=== PATIENT | female | born 1980 | race Caucasian/White ===

== ENCOUNTER 2020-10-13 15:28 | Outpatient (CLI) | payer BC, MEDICAID, SELFPAY ==
--- NOTE | 2020-10-13 15:35 | USR_ITS ---
PROCEDURE INFORMATION: Exam: US First Trimester, Transabdominal Exam date and time: 10/13/2020 3:39 PM Age: 40 years old Clinical indication: Lmp or gestational age (in weeks): [id number]; Antepartum complications; Other: Cramping; ; Additional info: Multigravida of advanced maternal age TECHNIQUE: Imaging protocol: Real-time transabdominal obstetrical ultrasound of the maternal pelvis and a first trimester , less than 14 weeks 0 days, with image documentation. COMPARISON: No relevant prior studies available. FINDINGS: Gestation: There is a Intrauterine gestational sac with pole and Yolk sac is 2.5 mm Embryonic/ heart rate: 147 BPM Placenta: Unremarkable. No subchorionic bleed. Amniotic fluid: Amniotic fluid is normal for gestational age. BIOMETRY: Gestational age (AUA): CRL 8.9 mm 6 weeks 6 days [facility] 06/02/2021 Gestational sac 2.46 cm 7 weeks 6 days [facility] 05/26/2021. Ultrasound gestational age 6 weeks 6 days [facility] 06/02/2021 Clinical gestational age 6 weeks 6 days U[facility] 06/02/2021 MATERNAL: Uterus: A uterine fibroid is seen in the anterior wall 1.1 cm x 1 cm x 1.2 cm Cervix: Cervical myometrial calcified fibroid 1.4 cm x 1.3 cm x 1.1 cm Right adnexa: There is a corpus luteum cyst with internal debris 1.3 cm x 1.6 cm x 1.5 Right ovary measures 3.9 cm x 2.3 cm x 2.4 cm Left adnexa: Unremarkable. 2.8 cm x 1.7 cm x 1.7 cm Intraperitoneal space: No intraperitoneal free fluid. US/US OB <=14 wk fetus w transvag IMPRESSION: 1. Intrauterine gestational sac with a pole and yolk sac. 2. Gestational age 6 weeks 6 days U[facility] 06/02/2021 3. Corpus luteum cyst right ovary . 4. Uterine fibroid anterior wall of the uterine body 5. Calcified cervical fibroid . 6. Negative left ovary.
== END 2020-10-13 15:29 | disposition home or self-care (01) ==
PROVIDERS: PCP Nurse Practitioner Family; Visit Provider Registered Nurse
DX: O09.521 Supervision of elderly multigravida, first trimester (principal); Z3A.01 Less than 8 weeks gestation of pregnancy; N83.11 Corpus luteum cyst of right ovary; D25.9 Leiomyoma of uterus, unspecified; D26.0 Other benign neoplasm of cervix uteri
CPT/HCPCS: 76801; 76817

== ENCOUNTER → 2020-11-04 08:41 | Outpatient (BNVA) | payer BC, SELFPAY | PROVIDERS: PCP Nurse Practitioner Family; Visit Provider Obstetrics & Gynecology | DX: Z34.80 Encounter for supervision of other normal pregnancy, unspecified trimester (principal) | CPT/HCPCS: 80307; 84315; 87086 ==

== ENCOUNTER → 2020-11-11 10:42 | Outpatient (BNVA) | payer BC, MEDICAID, SELFPAY | PROVIDERS: PCP Nurse Practitioner Family; Visit Provider Obstetrics & Gynecology | DX: Z34.80 Encounter for supervision of other normal pregnancy, unspecified trimester (principal) | CPT/HCPCS: 82950; 85027; 86592; 86762; 86803; 86850; 86900; 87340; 87806 ==

== ENCOUNTER → 2020-11-18 08:00 | Outpatient (BNVA) | payer BC, SELFPAY | PROVIDERS: PCP Nurse Practitioner Family; Visit Provider Obstetrics & Gynecology | DX: Z34.80 Encounter for supervision of other normal pregnancy, unspecified trimester (principal) | CPT/HCPCS: 84315; 87491; 87591; 88175 ==

== ENCOUNTER → 2020-12-16 13:14 | Outpatient (BNVA) | payer BC, SELFPAY | PROVIDERS: PCP Nurse Practitioner Family; Visit Provider Nurse Practitioner Women's Health | DX: Z34.90 Encounter for supervision of normal pregnancy, unspecified, unspecified trimester (principal) | CPT/HCPCS: 84315; 87086 ==

== ENCOUNTER → 2021-03-17 15:17 | Outpatient (BNVA) | payer BC, MEDICAID, SELFPAY | PROVIDERS: Visit Provider Obstetrics & Gynecology | DX: Z34.80 Encounter for supervision of other normal pregnancy, unspecified trimester (principal) | CPT/HCPCS: 82950; 84315; 85027; 86850 ==

== ENCOUNTER 2021-04-09 22:40 | Outpatient (CLI) | payer BC, MEDICAID, SELFPAY ==
[2021-04-09 22:40] VITALS: BMI 32.2
[2021-04-09 22:54] VITALS: BP 133/84; PULSE 90
[2021-04-09 23:10] VITALS: BP 107/73; PULSE 100
[2021-04-09 23:17] VITALS: RESP 17
[2021-04-09 23:26] VITALS: BP 127/78; PULSE 93
[2021-04-09] MEDS: dextrose 5%-lactated ringers 1,000 ML 999 ML IV (23:38)
[2021-04-09 23:55] VITALS: BP 108/55; PULSE 85
[2021-04-10 00:09] VITALS: BP 111/65; PULSE 85
[2021-04-10 00:24] VITALS: BP 112/66; PULSE 86
[2021-04-10 00:39] VITALS: BP 116/65; PULSE 97
[2021-04-10 00:54] VITALS: BP 122/68; PULSE 90
[2021-04-10 00:55] VITALS: BP 122/68; PULSE 90; RESP 17; TEMP 36.4
[2021-04-10 00:56] VITALS: TEMP 36.4
== END 2021-04-10 01:03 | disposition home or self-care (01) ==
LOC: OPOB 22:43 → OBGYN 22:44
PROVIDERS: PCP Registered Nurse; Visit Provider Obstetrics & Gynecology
DX: O35.8XX0 Maternal care for other (suspected) fetal abnormality and damage, not applicable or unspecified (principal)
CPT/HCPCS: 59025; 96360; 99211

== ENCOUNTER 2021-05-07 15:39 | Outpatient (CLI) | payer BC, MEDICAID, SELFPAY ==
[2021-05-07] VITALS (8 sets, daily range): BP systolic 115–142; BP diastolic 73–101; PULSE 88–107; RESP 18; TEMP 36.6; BMI 33.5
[2021-05-07 16:26] LABS: Basophils % 0.2 %; Eosinophils # 0.1 10^3/uL (0.0-0.8); Eosinophils % 0.7 %; Hematocrit 39.1 % (37.0-47.0); Hemoglobin 12.9 g/dL (11.5-15.3); Lymphocytes % 19.1 %; Mean Corpuscular Hemoglobin 29.3 pg (28.0-34.0); Mean Corpuscular Volume 88.7 fl (81-99); Monocytes # 0.9 10^3/uL (0.2-0.9); Monocytes % 8.1 %; Neutrophils # 7.63 10^3/uL (1.8-7.7); Neutrophils % 71.5 %; Nucleated Red Blood Cells % 0 %; Platelet Count 355 10^3/cmm (130-400); Red Blood Count 4.41 10^6/uL (4.1-5.3); Red Cell Distribution Width 14.6 % (12.1-15.1); White Blood Count 10.7 10^3/uL (4.0-10.0)
[2021-05-07 16:27] LABS: Add Urine Microscopic? NO; Charge for UA Resulting for Rev
[2021-05-07 16:36] LABS: Bilirubin Urine Neg (Negative); Blood Urine Neg (Negative); Glucose Urine UA Norm (Normal); Ketones Urine Negative (Negative); Leukocyte Esterase Urine Negative (Negative); Nitrate Urine Negative (Negative); Protein Urine Neg (Negative); Urine Appearance Clear (CLEAR); Urine Color Yellow (Yellow); Urobilinogen Urine Norm (Negative); pH Urine 6 (5-7)
[2021-05-07 16:56] LABS: Alanine Aminotransferase 13 U/L (0-33); Albumin Level 3.5 g/dL (3.5-5.2); Alkaline Phosphatase 108 IU/L (35-105); Anion Gap 17.7 (5-19); Aspartate Amino Transferase 13 U/L (0-32); Blood Urea Nitrogen 7 mg/dL (6-20); Calcium 8.4 mg/dL (8.5-10.5); Carbon Dioxide 17 mmol/L (22-29); Chloride 102 mmol/L (98-107); Globulin 2.7 g/dL (1.3-4.6); Glomerular Filtration Rate 137.4 mL/min (90-130); Glucose 88 mg/dL (65-115); Osmolality Calculated 273 mOsm/kg (285-295); Potassium 3.7 mmol/L (3.5-5.1); Sodium 133 mmol/L (136-145); Total Bilirubin 0.2 mg/dL (0.15-1.2); Total Protein 6.2 g/dL (6.6-8.7); Uric Acid 3.5 mg/dL (2.4-5.7)
[2021-05-07 17:02] LABS: Urine Creatinine 101 mg/dL (28-217); Urine Protein Random 15 mg/dL
[2021-05-07 17:05] LABS: UPRO/UCREAT Ratio 0.15 mg/mg CR
== END 2021-05-07 17:21 | disposition home or self-care (01) ==
LOC: OPOB 15:39 → OBGYN 15:42
PROVIDERS: PCP Registered Nurse; Visit Provider Obstetrics & Gynecology
DX: O16.9 Unspecified maternal hypertension, unspecified trimester (principal)
CPT/HCPCS: 36415; 59025; 80053; 81003; 82570; 84156; 84315; 84550; 85025; 99211

== ENCOUNTER 2021-05-19 10:42 | Inpatient (IN) | payer BC, MEDICAID, SELFPAY ==
[2021-05-19] VITALS (62 sets, daily range): BP systolic 81–164; BP diastolic 50–88; PULSE 72–134; RESP 18; TEMP 35.9–37.4; BMI 33.6
[2021-05-19] MEDS: ampicillin 2,000 MG in sodium chloride 0.9% (plus) 50 ML 100 MG IV (11:31)
[2021-05-19] MEDS: lactated ringers 1,000 ML 999 ML IV ×2 (11:32→13:18)
[2021-05-19 12:20] LABS: Basophils % 0.3 %; Eosinophils % 0.3 %; Hematocrit 39.4 % (37.0-47.0); Hemoglobin 13.2 g/dL (11.5-15.3); Lymphocytes # 1.6 10^3/uL (0.8-4.8); Lymphocytes % 13.7 %; Mean Corpuscular HGB Conc 33.5 g/dL (30.0-36.0); Mean Corpuscular Hemoglobin 29.7 pg (28.0-34.0); Mean Corpuscular Volume 88.5 fl (81-99); Mean Platelet Volume 12.1 fL (7.4-10.4); Monocytes # 0.8 10^3/uL (0.2-0.9); Monocytes % 6.6 %; Neutrophils # 9.32 10^3/uL (1.8-7.7); Neutrophils % 78.5 %; Nucleated Red Blood Cells % 0 %; Platelet Count 288 10^3/cmm (130-400); Red Blood Count 4.45 10^6/uL (4.1-5.3); Red Cell Distribution Width 14.4 % (12.1-15.1); White Blood Count 11.9 10^3/uL (4.0-10.0)
[2021-05-19] MEDS: ondansetron 2 mg/ML SDV 2 mL 4 MG IVP (13:18)
--- NOTE | 2021-05-19 13:18 | P.ANESASSM_ITS ---
Pre-Anesthetic Assessment Pre-Anesthetic Assessment: Height/Weight: Height 1.63 m Weight 88.904 kg Temp Pulse BP 97.3 F L 85 81/50 05/19/21 10:22 05/19/21 13:13 05/19/21 13:13 Was Beta Jennifer taken within 24 hours: N/A Was Clonidine taken within 24 hours: N/A Social: Social History: Tobacco and No alcohol Exam: Pre-Anes Outpt Exam: alert, oriented x 3, clear to auscultation bilaterally and regular rate & rhythm Airway: Submandibular: WNL Cervical ROM: WNL Dentition: Full History/ROS: No significant history except as noted CV/HEM: CV/HEM: Anemia Anesthetic Plan: ASA status: 2 Anesthesia: Regional (specify below) Other: Labor epidural Risk of > 500 ml blood loss (7ml/kg in children): No Meds/Allergies Current Medications: Current Medications Generic Name Dose Route Start Last Admin Trade Name Freq PRN Reason Stop Dose Admin Lactated Ringer's 1,000 mls @ 999 m ls/hr 05/19/21 10:38 05/19/21 11:32 Lactated Ringers IV 999 mls/hr .Q1H1M PRN Administration BLEEDING PFSH Anesthesia PFSH: Medical History No pertinent past medical history Denies diabetes, asthma, hypertension, seizures, DVT/PE PCP: CARLITOS Reyes Surgical History Hx of cholecystectomy 2004---laparoscopic procedure Hx of wisdom tooth extraction (~1999) Family History Grandfather Diabetes Paternal Heart disease Maternal Grandmother Heart disease Maternal Mother Hypercholesteremia Denies family history of Colon cancer Ovarian cancer Breast cancer Hypertension Uterine cancer Thyroid disease Stroke Female Reproductive History: : 2 Data Anesthesia CBC & Chem 7: 05/19/21 11:10 Other Labs: Laboratory Results - last 48 hr 05/19/21 11:10 WBC 11.9 H RBC 4.45 Hgb 13.2 Hct 39.4 MCV 88.5 MCH 29.7 MCHC 33.5 RDW 14.4 Plt Count 288 MPV 12.1 H Neut % (Auto) 78.5 Lymph % (Auto) 13.7 Gooding % (Auto) 6.6 Eos % (Auto) 0.3 Baso % (Auto) 0.3 Neut # (Auto) 9.32 H Lymph # (Auto) 1.6 Gooding # (Auto) 0.8 Eos # (Auto) 0.0 Baso # (Auto) 0.0 Nucleated RBC % (auto) 0 Nucleated RBCs # 0.0 Cardiac Studies: No Data to Display
--- NOTE | 2021-05-19 13:19 | ANES.PROC ---
Anesthesia Procedures Procedure/Date: 05/19/21 Epidural: Time Out Performed: Yes Consents Signed: Procedure Consent Consent: requested by attending/covering physician, from patient, risks and benefits reviewed and patient agrees to proceed Lumbar Level: L3-L4 Epidural position: sitting Epidural procedure: sterile prep of area, 1% lidocaine to numb the area, 18 g needle, neg for paresthesia, test dose given, 1.5% xylocaine 1:200k epi, 0.2% Ropivacaine bolus ml, placed PCEA, no systemic response, sterile dressing applied and 0.2% Ropiavacaine @ mls/hr (13) Additional Comments: MAGAN at 5cm, cath at 10cm.
[2021-05-19] MEDS: ePHEDrine 50 mg/mL Inj 25 MG IM (13:21)
[2021-05-19 14:18] LABS: Add Urine Microscopic? NO; Charge for UA Resulting for Rev
[2021-05-19] MEDS: oxytocin 30 UNIT/500 ML BAG IV (14:24)
[2021-05-19] MEDS: ampicillin 1,000 MG in sodium chloride 0.9% (plus) 50 ML 100 MG IV ×3 (14:24→22:20)
[2021-05-19 14:27] LABS: Bilirubin Urine Neg (Negative); Blood Urine Neg (Negative); Glucose Urine UA Norm (Normal); Ketones Urine 1+ (Negative); Nitrate Urine Negative (Negative); Protein Urine Neg (Negative); Specific Gravity, Urine 1.005 (1.005-1.030); Urine Appearance Clear (CLEAR); Urine Color Yellow (Yellow); pH Urine 7 (5-7)
[2021-05-19 14:28] LABS: Leukocyte Esterase Urine Negative (Negative); Urobilinogen Urine Norm (Negative)
[2021-05-19 14:35] LABS: Nitrazine Paper, PH Positive
[2021-05-19] MEDS: diphenhydrAMINE 50 mg/mL SDV 1mL 12.5 MG IVP (14:39)
[2021-05-19 14:53] LABS: Alanine Aminotransferase 9 U/L (0-33); Albumin Level 3.4 g/dL (3.5-5.2); Alkaline Phosphatase 106 IU/L (35-105); Aspartate Amino Transferase 12 U/L (0-32); Blood Urea Nitrogen 7 mg/dL (6-20); Calcium 8.6 mg/dL (8.5-10.5); Carbon Dioxide 19 mmol/L (22-29); Chloride 104 mmol/L (98-107); Glomerular Filtration Rate 137.4 mL/min (90-130); Glucose 88 mg/dL (65-115); Osmolality Calculated 277 mOsm/kg (285-295); Sodium 135 mmol/L (136-145); Total Bilirubin 0.2 mg/dL (0.15-1.2); Total Protein 6.4 g/dL (6.6-8.7)
[2021-05-19 15:02] LABS: UPRO/UCREAT Ratio 0.28 mg/mg CR; Urine Creatinine 29 mg/dL (28-217); Urine Protein Random 8 mg/dL
[2021-05-19 15:19] LABS: Uric Acid 4.2 mg/dL (2.4-5.7)
[2021-05-19] MEDS: dextrose 5%-lactated ringers 1,000 ML 125 ML IV (15:40)
[2021-05-19] MEDS: miSOPROStol 100 mcg tablet 25 MCG VAGINAL (19:58)
--- NOTE | 2021-05-19 21:19 | PM.OPHPUD ---
Labor & Delivery H&P Update Date of Procedure: May 19, 2021 Date H&P Performed: 05/17/21 H&P update information: I have reviewed H&P completed within last 30 days, I have examined patient prior to procedure and Changes to prior documentation as noted here Changes to previous documentation: the patient had PROM at 0830 hours today Admission Diagnosis: @ 38w0d Preop diagnosis: PROM
[2021-05-20] VITALS (44 sets, daily range): BP systolic 104–142; BP diastolic 55–85; PULSE 81–112; RESP 16; TEMP 36.4–37.2; O2SAT 97–98
[2021-05-20] MEDS: dextrose 5%-lactated ringers 1,000 ML 125 ML IV ×2 (01:20→05:51)
[2021-05-20 03:13] LABS: SARS Covid-2 Antigen Negative (Negative)
[2021-05-20] MEDS: ampicillin 1,000 MG in sodium chloride 0.9% (plus) 50 ML 100 MG IV (04:15)
[2021-05-20] MEDS: ondansetron 2 mg/ML SDV 2 mL 4 MG IVP (06:43)
--- NOTE | 2021-05-20 09:48 | PM.DELIVERY ---
Delivery Note: Date of delivery: May 20, 2021 Pre-delivery diagnoses: iup @ 38 weeks, PROM, anemia in , macrosomia, GBS bactiuria, rh negative, tobacco use, AMA Post-delivery diagnoses: same. No macrosomia Procedure: Op report anesthesia: Epidural Delivering Physician: Nancy Estimated blood loss (mL): 25 Findings: term male in BETTY presentation Pre-Delivery Course: The patient was admitted for prom. She had GBS bacturia and was started on ampicillin. She made slow progress. She received pitocin initially and then had 1 dose of cytotec placed. Then pitocin was restarted. She had complete cervical dilation and began pushing Delivery: The patient had complete cervical dilation and began to push. The head delivered in the BETTY position over an intact perineum under epidural anesthesia. The nose and mouth were bulb suctioned. The shoulders and body delivered atraumatically. The baby was placed onto the mother's abdomen. The cord was clamped and cut. Cord blood was obtained. The placenta delivered spontaneously. It was inspected and found to be intact. Inspection of the perineum revealed a second-degree laceration which was repaired in the usual fashion.. Estimated blood loss 25 mL. Apgars on baby were 9 at 1 minute and 9 at 5 minutes. Weight of baby is 7 pounds 13 ounces. Mother and baby were stable post delivery. 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
--- NOTE | 2021-05-20 09:59 | ANE.PACU2 ---
Inpatient post-anesthesia follow up: Airway intact: Yes Vital signs: Temperature 98.4 F Pulse Rate 93 Respiratory Rate 18 Blood Pressure 134/65 Pulse Oximetry Oxygen Delivery Me thod Room Air Oxygen Flow Rate Fraction of Inspir ed Oxygen Hydration adequate: Yes Nausea and vomiting: No Pain level: 2 Mental status: Baseline
[2021-05-20] MEDS: ibuprofen 800 mg tablet PO ×3 (10:39→21:35)
[2021-05-20] MEDS: docusate sodium 100 mg Capsule PO ×2 (10:43→17:45)
[2021-05-20] MEDS: prenatal vitamin Capsule 1 CAP PO (10:44)
[2021-05-20] MEDS: lanolin oint 7 gm 1 APPLIC TOPICAL (15:34)
[2021-05-20] MEDS: benzocaine-menthol 78 gm Canister 1 SPRAY TOPICAL (15:35)
[2021-05-20 20:12] LABS: Hematocrit 34.5 % (37.0-47.0); Hemoglobin 11.8 g/dL (11.5-15.3); Mean Corpuscular HGB Conc 34.2 g/dL (30.0-36.0); Mean Corpuscular Hemoglobin 30.8 pg (28.0-34.0); Mean Corpuscular Volume 90.1 fl (81-99); Mean Platelet Volume 11.4 fL (7.4-10.4); Platelet Count 238 10^3/cmm (130-400); Red Blood Count 3.83 10^6/uL (4.1-5.3); Red Cell Distribution Width 14.7 % (12.1-15.1); White Blood Count 18.9 10^3/uL (4.0-10.0)
[2021-05-21] MEDS: docusate sodium 100 mg Capsule PO (10:59)
[2021-05-21] MEDS: prenatal vitamin Capsule 1 CAP PO (10:59)
[2021-05-21] MEDS: ibuprofen 800 mg tablet PO (10:59)
--- NOTE | 2021-05-21 11:01 | P.DS_ITS ---
Discharge Providers Date of Admission: 05/19/21 10:42 Date of Discharge: May 21, 2021 Attending Provider at Admission: Wanda Cruz MD Attending Provider at Discharge: Wanda Cruz MD Primary Care Provider: Serina Zuniga Reason for Visit 2 Reason for Visit: PROM Hospital Course Hospital Course The patient was admitted for PROM. She had augmentation and ultimately had a vaginal delivery. She did well and was ready for discharge. Physical Exam Urinary Catheter Management^: Ryan: Cath Placed During This Visit: yes, but has since been removed by the nurse Reason for Continuing Indwelling Catheter: Other Urinary Catheter Date of Insertion: 05/19/21 Urinary Catheter Time of Insertion: 13:52 Date Urinary Catheter Removed: 05/20/21 Time Urinary Catheter Discontinued: 07:00 Discharge Data Data Completed and Pending: Pending at discharge Category Date Time Status Complete Crossmat ch Routine Lab 05/19/21 11:10 Results Rho D Immune Glob ulin Routine Lab 05/19/21 11:10 Results Type and Screen R outine Lab 05/19/21 11:10 Results Labs from last 24 hours 05/20/21 05/20/21 05/19/21 19:55 19:55 11:10 WBC 18.9 H RBC 3.83 L Hgb 11.8 Hct 34.5 L MCV 90.1 MCH 30.8 MCHC 34.2 RDW 14.7 Plt Count 238 MPV 11.4 H Blood Type A Negative Rho(D) Type Negative Antibody Screen Negative Antibody Identific ation Cancelled Screen Negative Vitals: Last Vital Signs Temp 98.3 F 05/20/21 22:25 Pulse 83 05/20/21 22:25 Resp 16 05/20/21 17:46 BP 123/79 05/20/21 17:46 Pulse Ox 97 05/20/21 17:46 Discharge Plan Discharge Patient Disposition: Home Condition: Stable Prescriptions: Continued prenat.vits,robles,awq-bdrx-whect Tablet 1 tab PO DAILY RF: 0 ferrous sulfate 325 mg (65 mg iron) tablet 325 mg PO DAILY RF: 0 docusate sodium [Colace] 100 mg capsule 100 mg PO DAILY RF: 0 diphenhydramine HCl [Benadryl] 25 mg capsule 25 mg PO TID PRN (Reason: Insomnia) RF: 0 Discharge Orders: Discharge Order (Routine); Ordered 05/21/21 Ordered By: Wanda Cruz Referrals: Wanda Cruz MD [Physician] - 07/05/21 2:45 pm Patient Instructions: Lanolin (On the skin), Depression (GEN), Perineal Care (GEN), Bleeding (GEN), Breast Care for the Mother (GEN), OB Discharge Report, OB Food/Drug Interaction Guide, Opioid Safety, OB Home Care, OB Vaginal Deliveries - [facility], Abnormal Bleeding Discharge Attestations Time Spent in Discharge Care*: less than 30 min Quality Metrics Clinical Quality Measures During this hospital stay, did patient experience: None Coding Level of Care Code Acute g DC note
[2021-05-21 11:08] VITALS: BP 125/80; PULSE 79; RESP 18; TEMP 36.9
[2021-05-21 11:24] VITALS: BP 125/80; PULSE 79; RESP 18; TEMP 36.9
[2021-05-21 12:21] VITALS: BP 124/82; PULSE 74; RESP 18; TEMP 37
[2021-05-21 12:41] VITALS: BP 124/82; PULSE 74; RESP 18; TEMP 37
== END 2021-05-21 12:35 | disposition home or self-care (01) | DRG 807 ==
LOC: OPOB 10:44 → OBGYN 10:44
PROVIDERS: Admitting Provider Obstetrics & Gynecology; PCP Registered Nurse; Visit Provider Obstetrics & Gynecology
DX: O99.02 Anemia complicating childbirth (principal); Z37.0 Single live birth; D64.9 Anemia, unspecified; O70.1 Second degree perineal laceration during delivery; O99.824 Streptococcus B carrier state complicating childbirth; Z3A.38 38 weeks gestation of pregnancy; O99.334 Smoking (tobacco) complicating childbirth; F17.210 Nicotine dependence, cigarettes, uncomplicated
CPT/HCPCS: 36415; 51702; 59025; 59409; 80053; 81003; 82570; 83986; 84156; 84550; 85025; 85027; 85460; 86850; 86900; 87426; 90384; 96372; 98960; 99211; J0290; J1200; J2405; J2795

== ENCOUNTER → 2021-07-19 16:10 | Outpatient (BNVA) | payer BC, MEDICAID, SELFPAY | PROVIDERS: PCP Registered Nurse; Visit Provider Obstetrics & Gynecology | DX: D25.1 Intramural leiomyoma of uterus (principal) | CPT/HCPCS: 76830 ==

== ENCOUNTER → 2021-08-10 11:05 | Outpatient (BNVA) | payer BC, MEDICAID, SELFPAY | PROVIDERS: PCP Registered Nurse; Visit Provider Obstetrics & Gynecology | DX: Z30.9 Encounter for contraceptive management, unspecified (principal); D25.9 Leiomyoma of uterus, unspecified | CPT/HCPCS: 81025 ==

== ENCOUNTER 2021-10-11 12:49 | Outpatient (CLI) | payer BC, MEDICAID, SELFPAY ==
--- NOTE | 2021-10-11 13:07 | MM_ITS ---
WS: [id number] BILATERAL 3D TOMOSYNTHESIS DIGITAL SCREENING MAMMOGRAPHY WITH CAD CLINICAL INFORMATION: Z12.39 - Encounter for other screening for malignant neop... HISTORY: Screening mammogram. No current complaints. COMPARISON: None. TECHNIQUE: Bilateral CC and MLO views. FINDINGS: Scattered fibroglandular densities bilaterally. 10 mm asymmetric density anterior LEFT breast superio r to the areola best seen on the MLO images. Recommend further evaluation with LEFT breast diagnostic mammography and ultrasound. Additional slightly spiculated asymmetric density measuring 8 mm upper outer RIGHT breast middle dept h. Recommend RIGHT breast diagnostic mammography and ultrasound. MM/[id number] IMPRESSION: BI-RADS: 0-Incomplete: Need additional imaging evaluation FOLLOW UP: Need Additional Imaging Recommend bilateral diagnostic mammography with spot compression views and ultr asound described above.
== END 2021-10-11 12:50 | disposition home or self-care (01) ==
LOC: RAD 12:52
PROVIDERS: PCP Registered Nurse; Visit Provider Obstetrics & Gynecology
DX: Z12.31 Encounter for screening mammogram for malignant neoplasm of breast (principal)
CPT/HCPCS: 77063; 77067

== ENCOUNTER 2021-11-03 15:34 | Outpatient (CLI) | payer BC, MEDICAID, SELFPAY ==
--- NOTE | 2021-11-03 15:45 | US_ITS ---
WS: [id number] TRANSABDOMINAL PELVIC AND TRANSVAGINAL PELVIC ULTRASOUND HISTORY: D25.9 - Leiomyoma of uterus, unspecified COMPARISON: 07/19/2021, 10/13/2020. Uterus: 9.1 cm x 6.0 cm x 4.3 cm. Normal size anteverted uterus. Several fibroids are identified. The re is a complex fibroid which may contain some calcifications along the lower posterior uterine segme nt measuring 3.3 x 2.8 x 2.2 cm. Mild peripheral increased vascularity. This was also noted on the pr ior study. The smaller anterior uterine fibroid has a maximum diameter of 0.6 cm. Endometrium: 0.5 cm. Normal size endometrium. IUD is present in good position. Right ovary: 3.5 cm x 3.0 cm x 2.3 cm. Normal size ovary with a few small cysts. Mildly complex corpu s luteal cyst is collapsing. Left ovary: 2.5 cm x 2.1 cm x 2.2 cm. Normal size and vascularity. Small amount of free fluid in the cul-de-sac. US/US pelvic with transvaginal IMPRESSION: 1. Fibroid uterus. The largest contains calcification along the posterior lowe r uterine segment measuring 3.3 x 2.8 x 2.2 cm without significant increase in size. 2. Small amount of free fluid. 3. IUD in good position.
== END 2021-11-03 15:35 | disposition home or self-care (01) ==
PROVIDERS: PCP Registered Nurse; Visit Provider Obstetrics & Gynecology
DX: D25.9 Leiomyoma of uterus, unspecified (principal); Z30.9 Encounter for contraceptive management, unspecified
CPT/HCPCS: 76830; 76856

== ENCOUNTER 2021-11-11 15:33 | Outpatient (CLI) | payer BC, MEDICAID, SELFPAY ==
--- NOTE | 2021-11-11 15:38 | MM_ITS ---
WS: [id number] BILATERAL 3D TOMOSYNTHESIS DIGITAL DIAGNOSTIC MAMMOGRAPHY WITH CAD CLINICAL INFORMATION: R92.8 - Other abnormal and inconclusive findings on diagn... COMPARISON: October 11, 2021 TECHNIQUE: Bilateral CC, MLO, and ML views. FINDINGS: Scattered fibroglandular densities bilaterally. Stable 10 mm asymmetric density anterior LEFT breast 12:00 areola. Stable asymmetric density measuring 8 mm upper outer RIGHT breast at middle depth. Ultrasound is pend ing. ULTRASOUND BREAST BILATERAL TECHNIQUE: Ultrasound bilateral breast focused area of concern. CLINICAL INFORMATION: R92.8 - Other abnormal and inconclusive findings on diagn... COMPARISON: None. FINDINGS: RIGHT BREAST: Complex cyst at the 9:00 position measuring 7 x 4 x 8 mm. Additional incidental cyst at the 8:00 posi tion measuring 6 x 5 x 5 mm. These have a benign appearance. LEFT BREAST: Subareolar hypoechoic LEFT breast lesion at the 12:00 position with homogeneous internal echogenicity likely represents galactocele, complex cyst, or less likely fibroadenoma. Recommend 6 m onth follow-up. MM/[id number] IMPRESSION: BI-RADS: 3-Probably Benign FOLLOW UP: 6 Month Follow-up Recommend 6 month follow-up LEFT breast diagnostic mammography and ultrasound a ttention to the subareolar 12:00 complex breast lesion.
== END 2021-11-11 15:34 | disposition home or self-care (01) ==
LOC: RAD 15:35
PROVIDERS: PCP Registered Nurse; Visit Provider Obstetrics & Gynecology
DX: R92.8 Other abnormal and inconclusive findings on diagnostic imaging of breast (principal); N64.9 Disorder of breast, unspecified
CPT/HCPCS: 76642; 77062

== ENCOUNTER → 2022-04-20 14:31 | Outpatient (BNVA) | payer OTHER, MEDICAID, SELFPAY | PROVIDERS: PCP Registered Nurse; Visit Provider Nurse Practitioner Family | DX: Z02.1 Encounter for pre-employment examination (principal) | CPT/HCPCS: 80307 ==

== ENCOUNTER 2022-05-18 10:50 | Outpatient (CLI) | payer MEDICAID, SELFPAY ==
--- NOTE | 2022-05-18 10:55 | MM_ITS ---
WS: [id number] LEFT 3D TOMOSYNTHESIS DIGITAL MAMMOGRAPHY WITH CAD CLINICAL INFORMATION: R92.8 - Other abnormal and inconclusive findings on diagn... HISTORY: Six-month follow-up COMPARISON: TECHNIQUE: 3 views of the left breast were obtained. FINDINGS: Scattered fibroglandular densities of the left breast. Again seen is the 10 mm asymmetric density ant erior LEFT breast 12:00 areola. This appears slightly more prominent compared to the prior examinatio n. Ultrasound is recommended and described below. LEFT breast is otherwise unchanged in appearance. Ultrasound described below. ULTRASOUND BREAST LEFT TECHNIQUE: Ultrasound left breast focused area of concern. CLINICAL INFORMATION: R92.8 - Other abnormal and inconclusive findings on diagn... FINDINGS: Again seen is the well-circumscribed hypoechoic lesion at 12:00 position with homogenous internal ech ogenicity. This has a more solid appearance today but is otherwise unchanged. Considering persistence on ultrasound and slight increase in size on mammography, recommend ultrasound-guided biopsy for mor e definitive evaluation. This may represent a fibroadenoma in a patient this age but technically inde terminate. Today this measures approximately 1.1 x 1.0 x 0.6 cm. No other suspicious abnormalities. MM/[id number] IMPRESSION: BI-RADS: 4-Suspicious Finding-Biopsy Should Be Considered FOLLOW UP: US Guided Biopsy Recommended Recommend ultrasound-guided biopsy in further evaluation.
== END 2022-05-18 10:51 | disposition home or self-care (01) ==
LOC: RAD 10:50
PROVIDERS: PCP Registered Nurse; Visit Provider Obstetrics & Gynecology
DX: R92.8 Other abnormal and inconclusive findings on diagnostic imaging of breast (principal); N63.25 Unspecified lump in the left breast, overlapping quadrants
CPT/HCPCS: 76642; 77061; G0279

== ENCOUNTER 2022-06-08 12:49 | Outpatient (CLI) | payer MEDICAID, SELFPAY ==
--- NOTE | 2022-06-08 13:01 | US_ITS ---
WS: [id number] ULTRASOUND-GUIDED LEFT BREAST BIOPSY CLINICAL INFORMATION: ABNORMAL MAMMO COMPARISON: May 18, 2022 FINDINGS: The procedure including risks, benefits, and complications were discussed with the patient who agreed to proceed. Using sterile technique patient was prepped and draped in the usual sterile fashion. Aft er 1% lidocaine utilizing real-time ultrasound guidance 5 14-gauge cores were obtained of the LEFT br east lesion at the 12 o'clock position areola. Subsequently a titanium clip was placed in the biopsy cavity. No immediate complications. Pathology demonstrates A. Breast, left, 12 o'clock, areola, biopsy: - Fibroadenoma. - No malignancy identified. US/[id number] IMPRESSION: 1. Uncomplicated ultrasound-guided LEFT breast biopsy. 2. The pathology demonstrates fibroadenoma. No malignancy identified. 3. Recommend 6 month follow-up LEFT breast diagnostic mammography and ultrasou nd postbiopsy with annual screening. BI-RADS: 2-Benign FOLLOW UP: 6 Month Follow-up Recommend 6 month follow-up LEFT breast diagnostic mammography and ultrasound p ostbiopsy at the time of annual screening.
== END 2022-06-08 12:50 | disposition home or self-care (01) ==
LOC: RAD 12:49
PROVIDERS: PCP Registered Nurse; Visit Provider Obstetrics & Gynecology
DX: R92.8 Other abnormal and inconclusive findings on diagnostic imaging of breast (principal)
CPT/HCPCS: 19083; 88305

== ENCOUNTER 2023-04-20 14:50 | Outpatient (CLI) | payer MEDICAID, SELFPAY ==
--- NOTE | 2023-04-20 | MM_ITS ---
BILATERAL 3D TOMOSYNTHESIS DIGITAL DIAGNOSTIC MAMMOGRAPHY WITH CAD CLINICAL INFORMATION: Z09 - Encounter for follow-up examination after completed... HISTORY: History of fibroadenoma biopsy COMPARISON: 05/18/2022 TECHNIQUE: Bilateral CC, MLO, and ML views. FINDINGS: Scattered fibroglandular densities bilaterally. Biopsy clip LEFT breast with stable adjacent small ovoid nodule. Ultrasound of this area is pending. No suspicious focal mass, asymmetry, calcifications, or architectural distortion. RIGHT breast is unchanged in appearance. ULTRASOUND BREAST LEFT TECHNIQUE: Ultrasound left breast focused area of concern. CLINICAL INFORMATION: Z09 - Encounter for follow-up examination after completed... FINDINGS: Ultrasound LEFT breast at the 12 o'clock position areola. Stable hypoechoic ovoid nodule previously biopsied measuring 1.1 x 1.1 x 0.6 cm with associated biopsy clip is unchanged in appearance. No evidence of progression. Recommend return to annual screening mammography. IMPRESSION: BI-RADS: 2-Benign FOLLOW UP: 1 Year Follow-up Recommend return to annual screening mammography. WEN
== END 2023-04-20 14:51 | disposition home or self-care (01) ==
LOC: RAD 14:50
PROVIDERS: PCP Registered Nurse; Visit Provider Obstetrics & Gynecology
DX: Z09 Encounter for follow-up examination after completed treatment for conditions other than malignant neoplasm (principal); Z86.018 Personal history of other benign neoplasm
CPT/HCPCS: 76642; 77062; G0279

== ENCOUNTER → 2023-12-20 07:57 | Outpatient (BNVA) | payer OTHER, SELFPAY | PROVIDERS: PCP Registered Nurse; Visit Provider Podiatrist Foot & Ankle Surgery | DX: M79.672 Pain in left foot (principal); M79.671 Pain in right foot; M21.612 Bunion of left foot | CPT/HCPCS: 73630 ==

== ENCOUNTER 2024-07-15 15:40 | Outpatient (CLI) | payer OTHER, SELFPAY ==
--- NOTE | 2024-07-15 15:45 | MM_ITS ---
WS: [id number] BILATERAL 3D TOMOSYNTHESIS DIGITAL SCREENING MAMMOGRAPHY WITH CAD CLINICAL INFORMATION: SCREENING HISTORY: Screening mammogram. No current complaints. COMPARISON: 2022 TECHNIQUE: Bilateral CC and MLO views. FINDINGS: The breasts are composed of heterogeneous fibroglandular density tissue, which can limit the detection of small underlying mass lesions. No suspicious mass, asymmetry, calcifications, or architectural distortion. No evidence of malignancy. Stable biopsy clip LEFT breast with focal nodule stable since 2021 MM/MM [facility] tomosynthesis [id number] IMPRESSION: DENSITY: The breasts are heterogeneously dense, which may obscure small masses. BI-RADS: 2 - Benign FOLLOW UP: 1 Year Follow-up Recommend return to annual screening mammography.
== END 2024-07-15 15:41 | disposition home or self-care (01) ==
PROVIDERS: PCP Registered Nurse; Visit Provider Registered Nurse
DX: Z12.31 Encounter for screening mammogram for malignant neoplasm of breast (principal); R92.333 Mammographic heterogeneous density, bilateral breasts; N63.20 Unspecified lump in the left breast, unspecified quadrant
CPT/HCPCS: 77063; 77067